=== PATIENT | male | born 1975 | race Caucasian/White ===

== ENCOUNTER 2019-02-20 09:45 | Day surgery (SDC) | payer OTHER ==
[~2019-02-20] VITALS: Ht 180.3 cm; Wt 73.5 kg
[~2019-02-20 09:45] MED LIST: AMBIEN10 MG PO; CETIRIZINE HCL10 MG PO; CHLORPROMAZINE10 MG PO; EFFEXOR XR150 MG PO; EPIN0.3P IM; FLOVENT HFA12 GM INH; HYZAAR 50-12.51 EACH PO; LIPITOR10 MG PO; OMEPRAZOLE20 M1 PO
--- NOTE | 2019-02-20 12:22 | NUR ---
02/20/19 1222 Micki Gordon 1206 PT ARRIVED IN PACU SLEEPY LAYING ON L SIDE. ABD SOFT. 1210 OXYGEN DECREASED TO 2L VIA NC WITH SATS 100%. 1215 PT AWAKENS AND FALLS BACK TO SLEEP. NO C/O'S. 1220 OXYGEN REMOVED. SATS 99% ON RA.
--- NOTE | 2019-02-22 11:23 | OR ---
[facility] [address], [place] [address] Signed DATE OF OPERATION: 02/20/2019 SURGEON: Claudia Cooper MD PREOPERATIVE DIAGNOSES: 1. History of colonic polyps. 2. Mental deficiency, distant history of head trauma. POSTOPERATIVE DIAGNOSIS: Normal-appearing colon. No evidence of recurrent or new polyps. PROCEDURE PERFORMED: Total colonoscopy to cecum. ANESTHESIA: Intravenous sedation, propofol infusion; Vannessa Howell CRNA. INDICATION: This 43-year-old white man is a patient of NEERAJ Hall, previously Claudia christianson of [place], [place], who is said to have had polyps while residing at [facility] in the past. This occurred in 2014. 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 He has had no blood per rectum, diarrhea, or constipation, but he is here for surveillance colonoscopy based on prior history of polyps. The risks of bleeding, infection, and perforation were reviewed with the patient and his hydraulic jack operator, and they wished to proceed. FINDINGS: The prep was excellent. Complete colonoscopy was undertaken to the cecum without question. There was no evidence of recurrent or new polyp. He had minimal hemorrhoidal changes. DESCRIPTION OF PROCEDURE: The patient was brought to the endoscopy suite and placed in lateral decubitus position, given propofol infusional sedation. Full cardiopulmonary monitoring was maintained. Digital rectal examination was normal. An Olympus video colonoscope was passed in the rectum and manipulated throughout the colon ultimately to the cecum. The ileocecal valve and appendiceal orifice were normal. With various manipulations, the scope was able to intubate the ileum itself. The scope Electronically Signed By: CLAUDIA COOPER MD 02/22/19 1123 PATIENT NAME: JULISA BRITT OPERATIVE REPORT DATE OF : 79 REPORT #: [id number] PHYSICIAN: CLAUDIA COOPER MD PCP: RAO WALL REPORT IS CONFIDENTIAL AND NOT TO BE RELEASED WITHOUT AUTHORIZATION [facility] [address], [place] [address] Signed was withdrawn to the cecum and then withdrawal of scope was undertaken with careful inspection throughout. There was no evidence of polyps, diverticular formation, colitis, or cancer. He did have some hemorrhoidal changes upon withdrawal of scope. The scope was removed. The patient was taken to recovery room in good condition. CONCLUDING DIAGNOSIS: No evidence of recurrent or persistent polyps. PLAN: Repeat colonoscopy in 5 years, sooner if symptoms should develop. MD FANTA Long/ELVIRAL /[id number] cc: NEERAJ Hall MD Copies: RAO WALL JOHN MD ~ Electronically Signed By: CLAUDIA COOPER MD 02/22/19 1123 PATIENT NAME: JULISA BRITT OPERATIVE REPORT DATE OF : 79 REPORT #: [id number] PHYSICIAN: CLAUDIA COOPER MD PCP: RAO WALL REPORT IS CONFIDENTIAL AND NOT TO BE RELEASED WITHOUT AUTHORIZATION
== END 2019-02-20 12:45 | disposition home or self-care (01) ==
LOC: OPS 09:45 → DS 09:45 → OPS 11:00 → DS 11:00 → OPS 12:45
PROVIDERS: Surgery
PROC: 0DJD8ZZ Inspection of Lower Intestinal Tract, Via Natural or Artificial Opening Endoscopic (ICD-10-PCS; principal; 2019-02-20 11:00)
DX: Z12.11 Encounter for screening for malignant neoplasm of colon (principal); K64.9 Unspecified hemorrhoids; F79 Unspecified intellectual disabilities; J45.909 Unspecified asthma, uncomplicated; K21.9 Gastro-esophageal reflux disease without esophagitis; F32.9 Major depressive disorder, single episode, unspecified; K20.0 Eosinophilic esophagitis; F81.9 Developmental disorder of scholastic skills, unspecified; Z86.010 Personal history of colon polyps; Z87.828 Personal history of other (healed) physical injury and trauma; Z79.899 Other long term (current) drug therapy
CPT/HCPCS: J2250; J2704; J3010

== ENCOUNTER 2019-08-14 13:53 | Observation (INO) | payer OTHER ==
[~2019-08-14] VITALS: Ht 180.3 cm; Wt 73.5 kg
--- OUTSIDE RECORDS SUMMARY | ~2019-08-14 | XMS | Clinical Summary ---
Demographics + + + | Address | [address] | | | [place] [address] | + + + | Home Phone | | + + + | Preferred Language | Unknown | + + + | Marital Status | Unknown | + + + | Adventist Affiliation | Unknown | + + + | Race | Unknown | + + + | Ethnic Group | Unknown | + + + Author + + + | Author | [facility] | | | and [place] | + + + | Organization | [facility] | | | and [place] | + + + | Address | Unknown | + + + | Phone | Unavailable | + + + Support +--------+ +---------+ + | Name | Relationship | Address | Phone | +--------+ +---------+ + | One No | ECON | Unknown | | +--------+ +---------+ + Care Team Providers + +------+ + | Care Boxing Promoter Name | Role | Phone | + +------+ + | Pari Wagner Activity | PCP | | | Professional | | | + +------+ + Allergies + + + + + + | Active Allergy | Reactions | Severity | Noted | Comments | | | | | Date | | + + + + + + | Bee Venom | Shortness Of Breath | High | 10/04/19 | | | | | | 19 | | + + + + + + Medications + + + +---------+------+------+-------+ | Medication | Sig | Dispensed | Refills | Star | End | Statu | | | | | | t | Date | s | | | | | | Date | | | + + + +---------+------+------+-------+ | fluticasone | Inhale 1 puff into | | 0 | 01/0 | | Activ | | (FLOVENT HFA) 220 | the lungs 2 (two) | | | 2/20 | | e | | mcg/puff inhaler | times daily. Rinse | | | 19 | | | | | mouth after use | | | | | | + + + +---------+------+------+-------+ | cetirizine | Take 10 mg by mouth | | 0 | 01/0 | | Activ | | (ZYRTEC) 10 mg | daily. | | | 2/20 | | e | | tablet | | | | 19 | | | + + + +---------+------+------+-------+ | | Take 1 tablet by | | 0 | 01/0 | | Activ | | losartan-hydrochloro | mouth daily. | | | 2/20 | | e | | thiazide (HYZAAR) | | | | 19 | | | | 50-12.5 MG per | | | | | | | | tablet | | | | | | | + + + +---------+------+------+-------+ | omeprazole | Take 20 mg by mouth | | 0 | 01/0 | | Activ | | (PRILOSEC) 20 mg | every morning before | | | 2/20 | | e | | capsule | breakfast. | | | 19 | | | + + + +---------+------+------+-------+ | venlafaxine | Take 150 mg by mouth | | 0 | 01/0 | | Activ | | (EFFEXOR XR) 150 mg | daily with | | | 2/20 | | e | | 24 hr capsule | breakfast. | | | 19 | | | + + + +---------+------+------+-------+ | atorvaSTATin | Take 10 mg by mouth | | 0 | 01/0 | | Activ | | (LIPITOR) 10 mg | nightly. | | | 2/20 | | e | | tablet | | | | 19 | | | + + + +---------+------+------+-------+ | zolpidem (AMBIEN) | Take 10 mg by mouth | | 0 | 01/0 | | Activ | | 10 mg tablet | nightly as needed | | | 2/20 | | e | | | for Sleep. | | | 19 | | | + + + +---------+------+------+-------+ | EPINEPHrine | Inject 0.3 mg into | | 0 | 01/0 | | Activ | | auto-injector 0.3 | the muscle as | | | 2/20 | | e | | mg/0.3 mL injection | needed. | | | 19 | | | + + + +---------+------+------+-------+ | aluminum-magnesium | Take 5 mLs by mouth | | 0 | 01/0 | | Activ | | hydroxide (MAG-AL) | every 6 (six) hours | | | 2/20 | | e | | 200-200 MG/5ML | as needed for | | | 19 | | | | suspension | Indigestion. | | | | | | + + + +---------+------+------+-------+ | ammonium lactate | Apply qhs to scaling | 225 g | 11 | 01/0 | 01/0 | Activ | | (LAC-HYDRIN) 12% | on hand. May use | | | 2/20 | 2/20 | e | | lotion | qid prn scaling. | | | 19 | 20 | | | | Can use in | | | | | | | | conjunction with | | | | | | | | vaseline as well. | | | | | | + + + +---------+------+------+-------+ | metFORMIN | | | 0 | 11/1 | | Activ | | (GLUCOPHAGE) 500 mg | | | | 6/20 | | e | | tablet | | | | 18 | | | + + + +---------+------+------+-------+ | MINTOX 200-200-20 | | | 0 | 01/0 | | Activ | | MG/5ML suspension | | | | 1/20 | | e | | | | | | 19 | | | + + + +---------+------+------+-------+ Active Problems Not on file Social History + +-------+ +--------+------+ | Tobacco Use | Types | Packs/Day | Years | Date | | | | | Used | | + +-------+ +--------+------+ | Never Assessed | | | | | + +-------+ +--------+------+ + + + | Sex Assigned at | Date Recorded | | | | + + + | Not on file | | + + + + + + + | Job Start Date | Occupation | Industry | + + + + | Not on file | Not on file | Not on file | + + + + + + + + | Travel History | Travel Start | Travel End | + + + + + + | No recent travel history available. | + + Last Filed Vital Signs + + + + + | Vital Sign | Reading | Time Taken | Comments | + + + + + | Blood Pressure | - | - | | + + + + + | Pulse | - | - | | + + + + + | Temperature | - | - | | + + + + + | Respiratory Rate | - | - | | + + + + + | Oxygen Saturation | - | - | | + + + + + | Inhaled Oxygen | - | - | | | Concentration | | | | + + + + + | Weight | 73 kg (161 lb) | 10/04/2018 9:38 AM | | | | | PST | | + + + + + | Height | - | - | | + + + + + | Body Mass Index | - | - | | + + + + + Plan of Treatment + + + + + | Health Maintenance | Due Date | Last Done | Comments | + + + + + | Vaccine: | | | | | Dtap/Tdap/Td (1 - | 6 | | | | Tdap) | | | | + + + + + | Vaccine: Influenza | | | | | (#1) | 9 | | | + + + + + Results Not on filefrom Last 3 Months"
--- OUTSIDE RECORDS SUMMARY | ~2019-08-14 | XMS | Encounter Summary ---
Demographics + + + | Address | [address] | | | [place] [address] | + + + | Home Phone | | + + + | Preferred Language | Unknown | + + + | Marital Status | Unknown | + + + | Yazidism Affiliation | Unknown | + + + | Race | Unknown | + + + | Ethnic Group | Unknown | + + + Author + + + | Author | [facility] | | | and [place] | + + + | Organization | [facility] | | | and [place] | + + + | Address | Unknown | + + + | Phone | Unavailable | + + + Support +--------+ +---------+ + | Name | Relationship | Address | Phone | +--------+ +---------+ + | One No | ECON | Unknown | | +--------+ +---------+ + Care Team Providers + +------+ + | Care Carpenter Railcar Name | Role | Phone | + +------+ + | Pari Wagner Activity | PCP | | | Professional | | | + +------+ + Encounter Details +--------+ + + + + | Date | Type | Department | Care Team | Description | +--------+ + + + + | 10/04/ | Orders Only | [facility] | Conversion | | | 2019 | | CONVERSION DEP 888 | Transaction, | | | | | ARIN MELISSA | Provider Unknown | | | | | [place] | | | | | | [phone] | (Fax) | | | | | [phone] | | | +--------+ + + + + Social History + +-------+ +--------+------+ | Tobacco [...] recent travel history available. | + + documented as of this encounter Plan of Treatment Not on filedocumented as of this encounter Visit Diagnoses Not on filedocumented in this encounter"
--- OUTSIDE RECORDS SUMMARY | ~2019-08-14 | XMS | Clinical Summary ---
Demographics + + + | Address | [address] | | | [place] [address] | + + + | Home Phone | | + + + | Preferred Language | Unknown | + + + | Marital Status | Single | + + + | Gnosticist Affiliation | Unknown | + + + | Race | Unknown | + + + | Ethnic Group | Unknown | + + + Author + + + | Author | [facility] (Historical as of | | | 05-19-19) | + + + | Organization | [facility] (Historical as of | | | 05-19-19) | + + + | Address | Unknown | + + + | Phone | Unavailable | + + + Support +--------+ +---------+ + | Name | Relationship | Address | Phone | +--------+ +---------+ + | No,One | ECON | Unknown | | +--------+ +---------+ + Care Team Providers + +------+ + | Care Solar Sales Manager Name | Role | Phone | + +------+ + | Pari Wagner CLIPPER OPERATOR | PP | | + +------+ + Allergies + + + + + + | Active Allergy | Reactions | Severity | Noted | Comments | | | | | Date | | + + + + + + | Bee Venom | Shortness of Breath | High | 10/04/19 | | | | | | 19 | | + + + + + + Current Medications + + +---------+---------+------+------+-------+ | Prescription | Sig. | Disp. | Refills | Star | End | Statu | | | | | | t | Date | s | | | | | | Date | | | + + +---------+---------+------+------+-------+ | fluticasone | Inhale 1 puff into | | | | | Activ | | (FLOVENT HFA) 220 | the lungs 2 (two) | | | | | e | | MCG/ACT inhaler | times daily. Rinse | | | | | | | | mouth after use | | | | | | + + +---------+---------+------+------+-------+ | cetirizine | Take 10 mg by mouth | | | | | Activ | | (ZYRTEC) 10 MG | daily. | | | | | e | | tablet | | | | | | | + + +---------+---------+------+------+-------+ | | Take 1 tablet by | | | | | Activ | | losartan-hydrochloro | mouth daily. | | | | | e | | thiazide (HYZAAR) | | | | | | | | 50-12.5 MG per | | | | | | | | tablet | | | | | | | + + +---------+---------+------+------+-------+ | omeprazole | Take 20 mg by mouth | | | | | Activ | | (PRILOSEC) 20 MG | every morning before | | | | | e | | capsule | breakfast. | | | | | | + + +---------+---------+------+------+-------+ | venlafaxine | Take 150 mg by mouth | | | | | Activ | | (EFFEXOR-XR) 150 MG | daily with | | | | | e | | 24 hr capsule | breakfast. | | | | | | + + +---------+---------+------+------+-------+ | atorvastatin | Take 10 mg by mouth | | | | | Activ | | (LIPITOR) 10 MG | nightly. | | | | | e | | tablet | | | | | | | + + +---------+---------+------+------+-------+ | zolpidem (AMBIEN) | Take 10 mg by mouth | | | | | Activ | | 10 MG tablet | nightly as needed | | | | | e | | | for Sleep. | | | | | | + + +---------+---------+------+------+-------+ | EPINEPHrine 0.3 | Inject 0.3 mg into | | | | | Activ | | MG/0.3ML | the muscle as | | | | | e | | auto-injector | needed. | | | | | | + + +---------+---------+------+------+-------+ | aluminum-magnesium | Take 5 mLs by mouth | | | | | Activ | | hydroxide 200-200 | every 6 (six) hours | | | | | e | | MG/5ML suspension | as needed for | | | | | | | | Indigestion. | | | | | | + + +---------+---------+------+------+-------+ | ammonium lactate | Apply qhs to scaling | 225 g | 11 | 01/0 | 01/0 | Activ | | (AMLACTIN) 12 % | on hand. May use | | | 2/20 | 2/20 | e | | lotionIndications: | qid prn scaling. | | | 19 | 20 | | | Lichen simplex | Can use in | | | | | | | chronicus | conjunction with | | | | | | | | vaseline as well. | | | | | | + + +---------+---------+------+------+-------+ | metFORMIN | | | | 11/1 | | Activ | | (GLUCOPHAGE) 500 MG | | | | 6/20 | | e | | tablet | | | | 18 | | | + + +---------+---------+------+------+-------+ | MINTOX 200-200-20 | | | | 01/0 | | Activ | | MG/5ML suspension | | | | 1/20 | | e | | | | | | 19 | | | + + +---------+---------+------+------+-------+ Active Problems No known active problems Social History + +-------+ +--------+------+ | Tobacco [...] on file | | + + + Last Filed Vital Signs + + + + | Vital Sign | Reading | Time Taken | + + + + | Blood Pressure | - | - | + + + + | Pulse | - | - | + + + + | Temperature | - | - | + + + + | Respiratory Rate | - | - | + + + + | Oxygen Saturation | - | - | + + + + | Inhaled Oxygen | - | - | | Concentration | | | + + + + | Weight | 73 kg (161 lb) | 10/04/2018 9:38 AM PST | + + + + | Height | - | - | + + + + | Body Mass Index | - | - | + + + + Plan of Treatment [...] + Results Not on filefrom Last 3 Months Insurance + +--------+ +------+-------+ + | Payer | Benefi | Subscriber | Type | Phone | Address | | | t Plan | ID | | | | | | / | | | | | | | Group | | | | | + +--------+ +------+-------+ + | MEDICAID | [place] | [id number] | | | [address] | | | N | | | | [place] | | | [place] | | | | [phone] | | | MECHANICAL PROCESS ENGINEER | | | | | + +--------+ +------+-------+ + + +--------+ +--------+ + + | Guarantor Name | Accoun | Relation to | Date | Phone | Billing Address | | | t Type | Patient | of | | | | | | | | | | + +--------+ +--------+ + + | JULISA BRITT | Person | Self | [birth year] Home: | [address] | | | al/Fam | | 1974 | [phone] | [place] [address] | | | [place] | | | [phone] | | + +--------+ +--------+ + +"
--- OUTSIDE RECORDS SUMMARY | ~2019-08-14 | XMS | Clinical Summary ---
Demographics + + + | Address | [address] | | | [place] [address] | + + + | Home Phone | | + + + | Preferred Language | Unknown | + + + | Marital Status | Unknown | + + + | Episcopalian Affiliation | Unknown | + + + | Race | Unknown | + + + | Ethnic Group | Unknown | + + + Author + + + | Author | [facility] | | | and [place] | + + + | Organization | [facility] | | | and [place] | + + + | Address | Unknown | + + + | Phone | Unavailable | + + + Support +--------+ +---------+ + | Name | Relationship | Address | Phone | +--------+ +---------+ + | One No | ECON | Unknown | | +--------+ +---------+ + Care Team Providers + +------+ + | Care Principal Biostatistician Name | Role | Phone | + [...]
--- OUTSIDE RECORDS SUMMARY | ~2019-08-14 | XMS | Encounter Summary ---
Demographics + + + | Address | [address] | | | [place] [address] | + + + | Home Phone | | + + + | Preferred Language | Unknown | + + + | Marital Status | Unknown | + + + | Buddhist Affiliation | Unknown | + + + | Race | Unknown | + + + | Ethnic Group | Unknown | + + + Author + + + | Author | [facility] | | | and [place] | + + + | Organization | [facility] | | | and [...] Team Providers + +------+ + | Care Ticket Collector Name | Role | Phone | + +------+ + | Pari Wagner Activity | PCP | | | Professional | | | + +------+ + Encounter Details +--------+ + + + + | Date | Type | Department | Care Team | Description | +--------+ + + + + | 10/05/ | Orders Only | [facility] | Conversion | | | 2019 | | CONVERSION DEP 888 | Transaction, | | | | | ARIN MELISSA | Provider Unknown | | | | | [place] | | | | | | [phone] | (Fax) | | | | | [phone] | | | +--------+ + + + [...]
--- OUTSIDE RECORDS SUMMARY | ~2019-08-14 | XMS | Clinical Summary ---
Demographics + + + | Address | [address] | | | [place] [address] | + + + | Home Phone | | + + + | Preferred Language | Unknown | + + + | Marital Status | Single | + + + | Church Affiliation | Unknown | + + + | Race | Unknown | + + + | Ethnic Group | Unknown | + + + Author + + + | Author | [facility] (Historical as of | | | 05-19-19) | + + + | Organization | [facility] (Historical as of | | | 05-19-19) | + + + | Address | Unknown | + + + | Phone | Unavailable | + + + Support +--------+ +---------+ + | Name | Relationship | Address | Phone | +--------+ +---------+ + | No,One | ECON | Unknown | | +--------+ +---------+ + Care Team Providers + +------+ + | Care Business Systems Technician Name | Role | Phone | + +------+ + | Pari Wagner PIE CRUST MIXER | PP | | + +------+ + [...] +------+-------+ + | MEDICAID | [place]IE | [id number] | | | [address] | | | N | | | | [place] | | | [place] | | | | [address] | | | MATH TUTOR | | | | | + +--------+ [...] Self | [birth year] | Home: | [address] | | | al/Fam | | 1974 | [phone] | [place] [address] | | | [place] | | | [phone] | | + +--------+ +--------+ + +"
--- OUTSIDE RECORDS SUMMARY | ~2019-08-14 | XMS | Encounter Summary ---
Demographics + + + | Address | [address] | | | [place] [address] | + + + | Home Phone | | + + + | Preferred Language | Unknown | + + + | Marital Status | Unknown | + + + | Rastafarian Affiliation | Unknown | + + + | Race | Unknown | + + + | Ethnic Group | Unknown | + + + Author + + + | Author | [facility] | | | and [place] | + + + | Organization | [facility] | | | and [place] | + + + | Address | Unknown | + + + | Phone | Unavailable | + + + Support +--------+ +---------+ + | Name | Relationship | Address | Phone | +--------+ +---------+ + | One No | ECON | Unknown | | +--------+ +---------+ + Care Team Providers + +------+ + | Care Residence Life Coordinator Name | Role | Phone | + [...] [place] | | | | | | [phone] | (Fax) | | | | | [phone] | | | +--------+ + + + [...]
--- OUTSIDE RECORDS SUMMARY | ~2019-08-14 | XMS | Clinical Summary ---
Demographics + + + | Address | [address] | | | [place] [address] | + + + | Home Phone | | + + + | Preferred Language | Unknown | + + + | Marital Status | Unknown | + + + | Temple Affiliation | Unknown | + + + | Race | Unknown | + + + | Ethnic Group | Unknown | + + + Author + + + | Author | [facility] | | | and [place] | + + + | Organization | [facility] | | | and [place] | + + + | Address | Unknown | + + + | Phone | Unavailable | + + + Support +--------+ +---------+ + | Name | Relationship | Address | Phone | +--------+ +---------+ + | One No | ECON | Unknown | | +--------+ +---------+ + Care Team Providers + +------+ + | Care Lumber Straightened Name | Role | Phone | + [...]
--- OUTSIDE RECORDS SUMMARY | ~2019-08-14 | XMS | Encounter Summary ---
Demographics + + + | Address | [address] | | | [place] [address] | + + + | Home Phone | | + + + | Preferred Language | Unknown | + + + | Marital Status | Unknown | + + + | Mandaeism Affiliation | Unknown | + + + | Race | Unknown | + + + | Ethnic Group | Unknown | + + + Author + + + | Author | [facility] | | | and [place] | + + + | Organization | [facility] | | | and [place] | + + + | Address | Unknown | + + + | Phone | Unavailable | + + + Support +--------+ +---------+ + | Name | Relationship | Address | Phone | +--------+ +---------+ + | One No | ECON | Unknown | | +--------+ +---------+ + Care Team Providers + +------+ + | Care Arson Investigator Name | Role | Phone | + [...] [place] | | | | | | [phone] | (Fax) | | | | | [phone] | | | +--------+ + + + [...]
--- OUTSIDE RECORDS SUMMARY | ~2019-08-14 | XMS | Clinical Summary ---
Demographics + + + | Address | [address] | | | [place] [address] | + + + | Home Phone | | + + + | Preferred Language | Unknown | + + + | Marital Status | Single | + + + | Caodaism Affiliation | Unknown | + + + | Race | Unknown | + + + | Ethnic Group | Unknown | + + + Author + + + | Author | [facility] (Historical as of | | | 05-19-19) | + + + | Organization | [facility] (Historical as of | | | 05-19-19) | + + + | Address | Unknown | + + + | Phone | Unavailable | + + + Support +--------+ +---------+ + | Name | Relationship | Address | Phone | +--------+ +---------+ + | No,One | ECON | Unknown | | +--------+ +---------+ + Care Team Providers + +------+ + | Care Register Of Deeds Name | Role | Phone | + +------+ + | Pari Wagner HOSTESS | PP | | + +------+ + [...] +------+-------+ + | MEDICAID | [place] | [id number] | | | [address] | | | N | | | | [place] | | | [place] | | | | [phone] | | | FARM TRACTOR MECHANIC | | | | | + +--------+ [...] Self | [birth year] | Home: | [address] | | | al/Fam | | 1974 | [phone] | [place] [address] | | | [place] | | | [phone] | | + +--------+ +--------+ + +"
--- OUTSIDE RECORDS SUMMARY | ~2019-08-14 | XMS | Encounter Summary ---
Demographics + + + | Address | [address] | | | [place] [address] | + + + | Home Phone | | + + + | Preferred Language | Unknown | + + + | Marital Status | Unknown | + + + | Samaritan Affiliation | Unknown | + + + | Race | Unknown | + + + | Ethnic Group | Unknown | + + + Author + + + | Author | [facility] | | | and [place] | + + + | Organization | [facility] | | | and [place] | + + + | Address | Unknown | + + + | Phone | Unavailable | + + + Support +--------+ +---------+ + | Name | Relationship | Address | Phone | +--------+ +---------+ + | One No | ECON | Unknown | | +--------+ +---------+ + Care Team Providers + +------+ + | Care Maintenance Job Titles Name | Role | Phone | + [...] [place] | | | | | | [phone] | (Fax) | | | | | [phone] | | | +--------+ + + + [...]
--- OUTSIDE RECORDS SUMMARY | ~2019-08-14 | XMS | Encounter Summary ---
Demographics + + + | Address | [address] | | | [place] [address] | + + + | Home Phone | | + + + | Preferred Language | Unknown | + + + | Marital Status | Unknown | + + + | Jainism Affiliation | Unknown | + + + | Race | Unknown | + + + | Ethnic Group | Unknown | + + + Author + + + | Author | [facility] | | | and [place] | + + + | Organization | [facility] | | | and [...] Team Providers + +------+ + | Care Model Dresser Name | Role | Phone | + [...] [place] | | | | | | [phone] | (Fax) | | | | | [phone] | | | +--------+ + + + [...]
[~2019-08-14 13:53] MED LIST changes: +IMODIUM A-D2 M2 PO; +ONDANSETRON ODT8 MG PO
[2019-08-14] MEDS ORDERED: RISPERDAL0.5 MG PO (14:30)
--- NOTE | 2019-08-14 16:32 | NUR ---
PATIENT TO FLOOR, DRESSED DOWN WITH HOSPITAL GOWN ON. NPO AT THIS TIME. NO NAUSEA VOMITING. WILL BE GOING FOR EGD PROCEDURE AT 1800. ADMISSION DONE. LR ON STRAIGHT TUBING READY. LR @85ML INFUSING NOW.
--- NOTE | 2019-08-14 16:34 | NUR ---
CAREGIVER AT BEDSIDE WTIH PATIENT, CALL LIGHT WITHIN REACH. NO OTHER NEEDS AT THIS TIME.
--- NOTE | 2019-08-14 17:40 | NUR ---
PATIENT READY FOR EGD PROCEDURE. GROOVER OPERATOR TO ROOM, RECORDS PRINTED. PRE-PROCEDURE CHECKLIST DONE. NO OTHER NEEDS AT THIS TIME.
--- NOTE | 2019-08-14 18:24 | NUR ---
08/14/191823 Diane Rivas PT ARRIVES TO PACU ON ROOM AIR, ACCOMPANIED BY PATTERN CUTTER AND OR STAFF. HE RESPONDS TO STIMULUS
--- NOTE | 2019-08-14 18:59 | NUR ---
PATIENT BACK TO FLOOR, REPORT FROM KASIA MASSEY. PATIENT AAOX3, VS STABLE. FULL BODY ASSESMENT DONE. NO NEEDS AT THIS TIME, CALL LIGHT WITHIN REACH.
--- NOTE | 2019-08-14 19:20 | NUR ---
REPORT RECEIVED FROM DESTINEE MASSEY. PT AWAKE IN BED SIPPING ON WATER, DENIES NAUSEA OR PAIN. CAREGIVER IN ROOM.
--- NOTE | 2019-08-14 20:30 | NUR ---
ASSESSMENT DONE. PT GIVEN JELLO AND 7UP AND IS TOLERATING IT WELL, NO NAUSEA. WILL D/C HOME WITH CAREGIVER.
--- NOTE | 2019-08-14 21:00 | NUR ---
PT UP TO VOID 575ML, SALINE LOCK REMOVED AND DISCHARGE INSTRUCTIONS GIVEN TO PT AND CAREGIVER WHO BOTH VERBALIZE UNDERSTANDING. PT D/C HOME WITH CAREGIVER.
--- NOTE | 2019-08-15 13:38 | HP ---
[facility] [address], [place] [address] Signed ADMISSION DATE: 08/14/2019 REASON FOR ADMISSION: Food impaction of esophagus (recurrent). HISTORY OF PRESENT ILLNESS: This 44-year-old white man has developmental delay and lives in a long term locally and is accompanied by his editor producer. He was evaluated in the emergency room by Dr. Munoz for a feeling of food stuck in the esophagus. The patient was eating pizza earlier today at [facility] at about one o'clock. He presented to the emergency room at approximately 1400 or 1430 hours with complaints of persistent sensation of food stuck in the esophagus. He was given a glass of water by the physician, which he regurgitated up promptly. Consultation was then undertaken. The patient is known to me from the past having undergone upper endoscopy with biopsy on October 05, 2016 for indication of dysphagia, and noted to have a distal esophageal stricture which was not impairing passage of the endoscope. He had no evidence of hiatal hernia. He had been diagnosed with eosinophilic esophagitis in the past. He has had at least nine episodes of dysphagia dating from April of 2016 to July of 2016, and at that time was taking Prilosec on a daily basis. He is admitted at this time for observation anticipating upper endoscopy for removal of food impaction. PAST MEDICAL HISTORY: As described. He has reasonable functional capacity, though does have mental deficiency and this was attested by his editor producer who is with him. MEDICATIONS: His medications noted in January of 2019 included atorvastatin, cetirizine, diphenhydramine, Effexor, Flovent, [place], and topical imiquimod. ALLERGIES: He has allergies to eggs and bee stings. REVIEW OF SYSTEMS: He has had no hematemesis or blood per rectum. He does not feel that the esophageal impaction has passed. He is not having excessive salivation currently, however. PHYSICAL EXAMINATION: GENERAL: A relatively thin white man who looks to be in no acute distress. He is accompanied by his caregiver. HEENT: Trachea is midline. He has no crepitus. There is no thyromegaly or cervical Electronically Signed By: CLAUDIA COOPER MD 08/15/19 1338 PATIENT NAME: JULISA BRITT HISTORY AND PHYSICAL DATE OF : 79 REPORT #: [id number] PHYSICIAN: CLAUDIA COOPER MD PCP: RAO WALL REPORT IS CONFIDENTIAL AND NOT TO BE RELEASED WITHOUT AUTHORIZATION [facility] [address], [place] [address] Signed adenopathy. CHEST: Clear. HEART: Regular without murmur. ABDOMEN: Flat and soft, easily palpated. There is no mass, tenderness, or ascites. EXTREMITIES: Show no clubbing, cyanosis, or edema. LAB STUDIES: Have not been obtained (yet). ASSESSMENT: This 44-year-old white man has clinical findings consistent with food impaction of the esophagus related to pizza. He tells me he had at least two pieces of pizza prior to the offending obstruction. On that basis, the stomach is "full." I have proposed that he be admitted and given IV fluids and in a few hours we will revisit the idea of upper endoscopy to disimpact the food that is lodged in the esophagus. His prior history is suggestive if not certain of eosinophilic esophagitis for which therapy would be including budesonide and topical steroid. I will need to review my chart notes to know to what extent that is the case and to what extent that therapy had previously been given. He will remain n.p.o. status. If he should have spontaneous passage of the offending obstruction that would be fine and a repeat endoscopy would not likely be necessary at this time. It is unlikely that it will happen, but it is a possibility and we will be open to that. The risks of bleeding, infection, and perforation related to upper endoscopy are reviewed with him. He understands and agrees to proceed. His impaction occurred at about 1:00 p.m., we will anticipate a 5-hour clearance time for the stomach, which may be reasonable under the circumstances. MD FANTA Long/MODL /[id number] Copies: Electronically Signed By: CLAUDIA COOPER MD 08/15/19 1338 PATIENT NAME: JULISA BRITT HISTORY AND PHYSICAL DATE OF : 79 REPORT #: [id number] PHYSICIAN: CLAUDIA COOPER MD PCP: RAO WALL REPORT IS CONFIDENTIAL AND NOT TO BE RELEASED WITHOUT AUTHORIZATION [address] [address] Signed ~ Electronically Signed By: CLAUDIA COOPER MD 08/15/19 1338 PATIENT NAME: LORENZAJULISALEONORA COTO HISTORY AND PHYSICAL DATE OF : 79 REPORT #: [id number] PHYSICIAN: CLAUDIA COOPER MD PCP: RAO WALL REPORT IS CONFIDENTIAL AND NOT TO BE RELEASED WITHOUT AUTHORIZATION
--- NOTE | 2019-08-15 13:38 | OR ---
[facility] [address] [place], [place] [address] Signed DATE OF OPERATION: 08/14/2019 SURGEON: Claudia Cooper MD PREOPERATIVE DIAGNOSES: 1. Food impaction of esophagus (pizza). 2. History of esophageal obstruction in past likely related to eosinophilic esophagitis. POSTOPERATIVE DIAGNOSES: 1. No evidence of retained food. 2. Several small-mouth esophageal diverticula. 3. Chronic esophagitis including distal portion. PROCEDURE: Upper endoscopy with biopsy. ANESTHESIA: General endotracheal, Kristie Sargent CRNA. INDICATION: This 44-year-old white man is developmentally disabled and lives at [facility] and managed by NEERAJ Hall. He presented to the emergency room in late afternoon with sensation of food impaction. [facility]. He had had at least 2 pieces of pizza, possibly more. He had hypersalivation upon challenge of his ability to swallow with a glass of water. He has been admitted, given intravenous fluids and allowed time to pass and now is to undergo upper endoscopy. The risks of bleeding, infection, and perforation were reviewed with him. He has reasonable understanding and wished to proceed. FINDINGS: There was no sign of impacted food at this point. Strangely, however, he did have several probable esophageal diverticular orifices, 2 that were paired at about 25 cm, another more distally. There was another saucer-like area that may have been a healed ulcer, though I think more likely the origin of a diverticulum. The scope was not easily passed to the GE junction, though there was no distinct stricture at that site. Biopsies were taken throughout. There is a high probability this represents manifestations of chronic obstructive disease and possibly eosinophilic esophagitis as has been postulated in the past. DESCRIPTION OF PROCEDURE: Electronically Signed By: CLAUDIA COOPER MD 08/15/19 1338 PATIENT NAME: JULISA BRITT OPERATIVE REPORT DATE OF : 79 REPORT #: [id number] PHYSICIAN: CLAUDIA COOPER MD PCP: RAO WALL REPORT IS CONFIDENTIAL AND NOT TO BE RELEASED WITHOUT AUTHORIZATION [facility] [address] [place], [place] [address] Signed The patient was brought to endoscopy suite, laid in supine position, was given a general endotracheal anesthetic. A bite block was placed. An Olympus video upper endoscope passed in the hypopharynx. Scope was advanced in the esophagus without problem and gently passed down the esophagus, never encountering any food impaction. The distal esophagus was somewhat misshapen, but did not have a dense stricture, but would not easily accommodate the scope. The stomach was able to be visualized from the orifice, however. There was no distinct shelf and certainly no tumor. Biopsies were taken there. The scope was withdrawn and a saucer-like shaped area of the esophageal mucosa was noted. This may have represented a diverticular orifice, but possibly simply the remnant of a healed ulcer. Scope was withdrawn a bit further and a single-lumen diverticulum noted at approximately 30 cm and further withdrawal at 25 cm a double-lumen such diverticular finding. Biopsies were taken of the mid and upper esophagus as well as the distal esophagus. Reintroduction of the scope allowed for photographs and so forth. The scope was then removed and the patient was taken to recovery room in good condition. CONCLUDING DIAGNOSIS: Likely has dysmotility problem of the esophagus, possibly related to eosinophilic esophagitis. This may have resulted in pulsion diverticula as noted by esophageal orifice of the diverticula. PLAN: Recommend liquids for 48 hours and full liquids after that. An upper GI will be appropriate to better characterize the contour and motility of his esophagus. He continues to take swallowed fluticasone, which he should continue as well as a PPI medication, which he is said to continue to take as well. I would like to see him back in the office after upper GI can be organized, specifically a video esophagram at [facility]. MD FANTA Long/MELISA /[id number] cc: NEERAJ Hall Electronically Signed By: LCAUDIA COOPER MD 08/15/19 1338 PATIENT NAME: JULISA BRITT OPERATIVE REPORT DATE OF : 79 REPORT #: [id number] PHYSICIAN: CLAUDIA COOPER MD PCP: RAO WALL REPORT IS CONFIDENTIAL AND NOT TO BE RELEASED WITHOUT AUTHORIZATION [facility] [address] [facility] [place], [place] [address] Signed Copies: RAO WALL ~ Electronically Signed By: CLAUDIA COOPER MD 08/15/19 1338 PATIENT NAME: LORENZAJULISA CHICA OPERATIVE REPORT DATE OF : 79 REPORT #: [id number] PHYSICIAN: CLAUDIA COOPER MD PCP: RAO WALL REPORT IS CONFIDENTIAL AND NOT TO BE RELEASED WITHOUT AUTHORIZATION
--- NOTE | 2019-08-16 13:24 | PATH ---
[facility] [address] [place], [place] [address] Signed SPECIMEN(S): A LOWER ESOPHAGUS SPECIMEN(S): B ESOPHAGUS NOS AT 25 CM SPECIMEN SOURCE: A. LOWER ESOPHAGUS B. ESOPHAGUS NOS AT 25 CM CLINICAL HISTORY: Esophageal diverticula, esophagitis. MICROSCOPIC DESCRIPTION: Histologic sections of all submitted blocks are examined by light microscopy. These findings, together with the gross examination, support the pathologic diagnosis. FINAL PATHOLOGIC DIAGNOSIS: A. Esophagus, lower, biopsy: - Reactive esophageal mucosa with increased intraepithelial eosinophils, see Comment. B. Esophagus at 25 cm, biopsy: - Reactive esophageal mucosa with increased intraepithelial eosinophils, see Comment COMMENT: Sections of the lower esophageal biopsy and esophageal biopsy at 25 cm (specimens A and B) show reactive squamous mucosa with increased intraepithelial eosinophils (approximately 25 per high power field). The changes, which are significantly more severe in the lower esophagus, include basal cell hyperplasia, spongiosis, reactive epithelial cell enlargement, and lamina propria fibrosis. In the correct clinical setting, the findings could be consistent with eosinophilic esophagitis. Correlation with endoscopic findings and clinical history is required. NAL:cml:C2NR GROSS DESCRIPTION: Two specimens are received in two containers, labeled "VZ." A. The specimen, labeled "VZ, lower esophagus biopsy," is received in formalin and consists of two vences-white tissue fragments both measuring 0.2 cm. Specimen is entirely submitted in cassette (A1). B. The specimen, labeled "VZ, esophageal biopsy at 25 cm," is received in formalin and consists of three, 0.1-0.2 cm vences-white tissue fragments admixed PATIENT NAME: JULISA BRITT PATHOLOGY DATE OF : 79 REPORT #: [id number] PHYSICIAN: TERRELL LEE PCP: RAO WLAL REPORT IS CONFIDENTIAL AND NOT TO BE RELEASED WITHOUT AUTHORIZATION [facility] [address] [place] [address] Signed with debris. Specimen is entirely submitted in cassette (B1). AM (under the direct supervision of a pathologist) The Gross Description was prepared using a voice recognition system. The report was reviewed for accuracy; however, sound-alike word errors, addition and/or deletions may occur. If there is any question about this report, please contact Client Services. PERFORMING LABORATORY: The technical component was performed by [facility] [address] (Bow Maker Production: Shreya Hughes MD; CLIA# [id number]). [facility], [address] [address] (Bow Maker Production: Wade Camacho MD; CLIA# [id number]). Diagnostician: Desirae Oshea MD Pathologist Electronically Signed 08/16/2019 Copies: ~ PATIENT NAME: JULISA BRITT PATHOLOGY DATE OF : 79 REPORT #: [id number] PHYSICIAN: TERRELL LEE PCP: RAO WALL REPORT IS CONFIDENTIAL AND NOT TO BE RELEASED WITHOUT AUTHORIZATION
== END 2019-08-14 21:35 | disposition home or self-care (01) ==
LOC: ED 13:53 → MS 13:55
PROVIDERS: ADMIT Surgery
PROC: 0DB18ZX Excision of Upper Esophagus, Via Natural or Artificial Opening Endoscopic, Diagnostic (ICD-10-PCS; 2019-08-14)
PROC: 0DB28ZX Excision of Middle Esophagus, Via Natural or Artificial Opening Endoscopic, Diagnostic (ICD-10-PCS; 2019-08-14)
PROC: 0DB38ZX Excision of Lower Esophagus, Via Natural or Artificial Opening Endoscopic, Diagnostic (ICD-10-PCS; principal; 2019-08-14 18:00)
DX: T18.128A Food in esophagus causing other injury, initial encounter (principal); Q39.6 Congenital diverticulum of esophagus; K20.9 Esophagitis, unspecified; Z79.899 Other long term (current) drug therapy; Z79.891 Long term (current) use of opiate analgesic; Z79.51 Long term (current) use of inhaled steroids
CPT/HCPCS: 80053; 85025; 88305; 99285; G0378; J0330; J1100; J2704; J7121

== ENCOUNTER 2020-05-08 12:48 | Day surgery (SDC) | payer OTHER ==
[~2020-05-08] VITALS: Ht 180.3 cm; Wt 90.3 kg
[~2020-05-08 12:48] MED LIST changes: +FLUTICASONE PRO16 GM NAS; +GUANFACINE HCL1 MG PO; +HYDROCHLOROTH12.5 MG PO; +MAALOX ADVANCE355 ML PO; +MILK OF MA400 MG/5 M PO; +RISPERDAL2 MG PO; +TYLENOL325 M1 PO; +VISTARIL50 MG PO
--- NOTE | 2020-05-09 15:59 | PATH ---
[facility] [address] [place], [place] [address] Signed SPECIMEN(S): A DISTAL ESOPHAGUS SPECIMEN(S): B MIDDLE ESOPHAGUS SPECIMEN SOURCE: A. DISTAL ESOPHAGUS B. MIDDLE ESOPHAGUS CLINICAL HISTORY: Schatzki's ring stricture, eosinophilic esophagitis. MICROSCOPIC DESCRIPTION: Histologic sections of all submitted blocks are examined by light microscopy. These findings, together with the gross examination, support the pathologic diagnosis. FINAL PATHOLOGIC DIAGNOSIS: A. Distal esophagus: - Squamocolumnar junction with increased squamous (esophageal) eosinophils approximately 55 per HPF. - Negative for specialized intestinal metaplasia or dysplasia. B. Mid esophagus: - Benign esophageal mucosa, with focally increased epithelial eosinophils (up to 16 per HPF). COMMENT: Clinical correlation is requested, however, these findings raise the consideration of eosinophilic esophagitis. JVR:[facility]:C2NR GROSS DESCRIPTION: Two specimens are received in two containers, labeled "VZ." A. The specimen, labeled VZ, distal esophagus biopsy is received in formalin and consists of eight vences soft tissue fragments that measure 0.3 cm in greatest dimension. The specimen is entirely submitted in cassette (A1). B. The specimen, labeled "VZ, middle esophagus biopsy," is received in formalin and consists of four vences soft tissue fragments that measure 0.3 cm in greatest dimension. The specimen is entirely submitted in cassette (B1). JS (under the direct supervision of a pathologist) The Gross Description was prepared using a voice recognition system. The report was reviewed for accuracy; however, sound-alike word errors, addition PATIENT NAME: JULISA BRITT PATHOLOGY DATE OF : 79 REPORT #: [id number] PHYSICIAN: TERRELL LEE PCP: RAO WALL REPORT IS CONFIDENTIAL AND NOT TO BE RELEASED WITHOUT AUTHORIZATION [address] [place], [place] [address] Signed and/or deletions may occur. If there is any question about this report, please contact Client Services. PERFORMING LABORATORY: The technical component was performed by [facility], [address] [place] [address] (Pipe Tester: Shreya Hughes MD; CLIA# [id number]). Professional interpretation was performed by [facility], [place] [address] (Pipe Tester: Raúl Alvarez M.D.). Diagnostician: Raúl Alvarez MD Pathologist Electronically Signed 05/09/2020 Copies: ~ PATIENT NAME: JULISA BRITT PATHOLOGY DATE OF : 79 REPORT #: [id number] PHYSICIAN: TERRELL LEE PCP: RAO WALL REPORT IS CONFIDENTIAL AND NOT TO BE RELEASED WITHOUT AUTHORIZATION
--- NOTE | 2020-05-10 13:18 | OR ---
[facility] [address] [place], [place] [address] Signed DATE OF OPERATION: SURGEON: Claudia Cooper MD PREOPERATIVE DIAGNOSES: 1. Known eosinophilic esophagitis with dysphagia symptoms initially cured with fluticasone swallowed and PPI medication with appropriate drug holiday. 2. New onset dysphagia, uncertain etiology. POSTOPERATIVE DIAGNOSES: 1. Distal esophageal stricture, short-segment. 2. Small proximal esophageal diverticular opening. 3. Marginal flap valve. 4. No obvious findings of eosinophilic esophagitis. PROCEDURES: Esophagogastroduodenoscopy with multiple biopsies of stricture and biopsy of midesophagus. ANESTHESIA: Intravenous sedation, propofol infusion; Dion Cummins CRNA. INDICATION: This 44-year-old white man is a resident at [facility] and was evaluated by me in the past for dysphagia, which proved to be the eosinophilic esophagitis. He had markedly dense with the improvement of his swallowing with a regimen of fluticasone spray swallowed b.i.d. as well as ongoing use of PPI medication. He was given a drug holiday for a week on a monthly basis from the fluticasone to avoid yeast esophagitis. In recent times, he has had development of dysphagia despite adherence to that policy. He is admitted at this time to undergo upper endoscopy to better characterize the problem. In particular to assess, there is no sign of yeast esophagitis, but also whether or not there is stricture or other abnormalities accounting for his dysphagia. FINDINGS: Had a small finding of an esophageal diverticular opening in the proximal esophagus is a very minute opening, certainly not able to accommodate the scope. The remaining esophagus had a somewhat angulated configuration, but not concentric rings as is typically seen in untreated eosinophilic esophagitis. The distal esophagus had a smooth concentric and relatively short stricture that would not accommodate passage of the standard upper endoscope. The narrow or upper endoscope was able to pass beyond this area to allow for visualization of the stomach and duodenum. Retroflexed view did show Electronically Signed By: CLAUDIA COOPER MD 05/10/20 1318 PATIENT NAME: JULISA BRITT OPERATIVE REPORT DATE OF : 79 REPORT #: [id number] PHYSICIAN: CLAUDIA COOPER MD PCP: RAO WALL TILE [place] REPORT IS CONFIDENTIAL AND NOT TO BE RELEASED WITHOUT AUTHORIZATION [facility] [address] [place], [place] [address] Signed a marginal flap valve, but no sign of large hiatal hernia. Multiple biopsies were taken of the concentric esophageal stricture, so as to break it up and most importantly to provide diagnosis specifically to rule out malignancy, however, unlikely that might be. Formal dilation was not undertaken. Biopsies were also taken midesophagus to reaffirm underlying diagnosis of eosinophilic esophagitis. DESCRIPTION OF PROCEDURE: The patient was brought to the endoscopy suite placed in lateral decubitus position. He was given intravenous sedation with propofol infusional technique by the body recall instructor and topical Hurricaine spray hypopharyngeal anesthesia was applied as well. An Olympus standard upper endoscope was passed in the hypopharynx. The vocal cords were normal. Scope was advanced to the esophagus, although there appeared to be some angulation deformity to a small degree. There was no sign of concentric rings. The scope was passed to the distal esophagus, one could visualize the stomach, but could not pass the scope through the distal esophagus. Careful manipulation and withdrawal and advancement of the scope simply would not allow it to go through. There appeared to be likely a dense concentric short Schatzki ring type stricture there. The scope was withdrawn and an older upper endoscope from Olympus without the irrigation channel was passed down the esophagus and passed by the stricture. This allowed for examination of the stomach. Rugal folds were normal. Pylorus was normal scope was passed through into the duodenum, which was normal. Scope was withdrawn in retroflexed view, showed the GE junction to have small amount of blood, where the scope it passed in a somewhat poor flap valve. The scope was withdrawn to the distal esophagus and the examination showed the area of concentric narrowing, which was symmetric, not ulcerated and not lengthy. Consideration was made for direct dilation at this time. However, mindful of the possibility of malignancy with the stricture, however, and likely multiple biopsies were instead undertaken of the ring breaking that. Firm fibrotic changes were noted upon biopsy. Multiple biopsies were taken. The scope was then withdrawn to the mid esophagus were biopsies taken to assess for eosinophilic esophagitis. Scope was then removed. The patient was taken to recovery room in good condition. CONCLUDING DIAGNOSIS: Dysphagia related to distal esophageal stricture, now multiple biopsied. PLAN: I would continue with current regimen of fluticasone with a monthly holiday for week. Continued use of PPI medication daily and if dysphagia has not improved with the aforementioned maneuvers and if the biopsies of the esophageal stricture prove to be benign, then consider for esophageal dilation under fluoroscopic control. Electronically Signed By: CLAUDIA COOPER MD 05/10/20 1318 PATIENT NAME: JULISA BRITT OPERATIVE REPORT DATE OF : 79 REPORT #: [id number] PHYSICIAN: CLAUDIA COOPER MD PCP: RAO WALL REPORT IS CONFIDENTIAL AND NOT TO BE RELEASED WITHOUT AUTHORIZATION [facility] [address] [place], [place] [address] Signed MD FANTA Long/MODL /[id number] cc: NEERAJ Hall Copies: RAO WALL ~ Electronically Signed By: CLAUDIA COOPER MD 05/10/20 1318 PATIENT NAME: JULISA BRITT OPERATIVE REPORT DATE OF : 79 REPORT #: [id number] PHYSICIAN: CLAUDIA COOPER MD PCP: RAO WALL REPORT IS CONFIDENTIAL AND NOT TO BE RELEASED WITHOUT AUTHORIZATION
== END 2020-05-08 13:10 | disposition home or self-care (01) ==
LOC: OPS 12:48
PROVIDERS: Surgery
PROC: 0DB28ZX Excision of Middle Esophagus, Via Natural or Artificial Opening Endoscopic, Diagnostic (ICD-10-PCS; 2020-05-08)
PROC: 0DB38ZX Excision of Lower Esophagus, Via Natural or Artificial Opening Endoscopic, Diagnostic (ICD-10-PCS; principal; 2020-05-08 10:30)
DX: K22.2 Esophageal obstruction (principal); K22.5 Diverticulum of esophagus, acquired; J45.909 Unspecified asthma, uncomplicated; K21.9 Gastro-esophageal reflux disease without esophagitis; F32.9 Major depressive disorder, single episode, unspecified; F81.9 Developmental disorder of scholastic skills, unspecified; Z91.012 Allergy to eggs; Z91.030 Bee allergy status; Z79.899 Other long term (current) drug therapy
CPT/HCPCS: J2001; J2704; J3010; J7121

== ENCOUNTER 2021-05-15 18:41 | Emergency (ER) | payer OTHER ==
[~2021-05-15] VITALS: Ht 180.3 cm; Wt 95.2 kg
[2021-05-15] MEDS ORDERED: DEPLIN-ALGAL O1 EAC1 PO (19:12)
--- NOTE | 2021-05-16 13:58 | EKG ---
[facility] [address] [facility] [place], [place] [address] Signed Normal sinus rhythm Right bundle branch block Abnormal ECG When compared with ECG of 15-FEB-2019 17:16, Right bundle branch block is now present Confirmed by NEIL HOPKINS DO ([id number]) on 05/16/2021 1:58:30 PM Electronically Signed By: NEIL HOPKINS DO 05/16/21 1358 PATIENT NAME: JULISA BRITT Electrocardiogram DATE OF : 79 PHYSICIAN: NEIL HOPKINS DO REPORT #: [id number] REPORT IS CONFIDENTIAL AND NOT TO BE RELEASED WITHOUT AUTHORIZATION
== END 2021-05-15 23:20 | disposition home or self-care (01) ==
LOC: ED 18:41
DX: R07.2 Precordial pain (principal); I10 Essential (primary) hypertension; E78.5 Hyperlipidemia, unspecified; Z87.891 Personal history of nicotine dependence; Z91.012 Allergy to eggs; Z91.030 Bee allergy status; Z79.899 Other long term (current) drug therapy
CPT/HCPCS: 71045; 80053; 83735; 84484; 85025; 96374; 99285-25; J1885